=== PATIENT | male | born 1980 | race Caucasian/White ===

== ENCOUNTER 2018-03-24 20:14 | Emergency (ER) | payer SELFPAY ==
[2018-03-24] MEDS ORDERED: ACETAMINOPHEN 325 MG TABLET PO ONE (20:35)
--- NOTE | 2018-03-24 22:00 | ER Document Report ---
HPI - HPI Patient complains to provider of: fever Time Seen by Provider: 03/24/18 21:28 Pain Level: 5 Context: Patient is a 37-year-old male presents the emergency department complaining of generalized body aches, bilateral ear pain, sore throat, fever, cough, congestion for the last 3 days. Patient states his "lungs hurt" when he tries to take a deep breath. Patient does admit to one episode of non-posttussive vomiting this afternoon but states he has been able to drink fluids since. Patient denies any nausea or diarrhea. Patient states his son is a type I diabetic at home and he does not want to get him sick which is why he comes to the emergency room. Past medical history: None Medications: None Allergies: Penicillin Patient denies cigarette smoking, denies illicit drug use, denies EtOH use. - EENT EENT: REPORTS: Ear Pain - RESPIRATORY Respiratory: REPORTS: Coughing Past Medical History - General Information source: Patient - Social History Smoking Status: Never Smoker Family History: Reviewed & Not Pertinent Patient has suicidal ideation: No Patient has homicidal ideation: No Renal/ Medical History: Denies: Hx Peritoneal Dialysis Vertical Provider Document - CONSTITUTIONAL Agree With Documented VS: Yes Notes: GENERAL: Alert, interacts well. No acute distress. HEAD: Normocephalic, atraumatic. EYES: Pupils equal, round, and reactive to light. Extraocular movements intact. ENT: Oral mucosa moist, tongue midline. Nares patent, swollen turbinates bilaterally, TMs nonerythematous, nonbulging, pharynx within normal limits, no palatal petechiae or exudate noted NECK: Full range of motion. Supple. Trachea midline. No lymphadenopathy nalini reciated LUNGS: Clear to auscultation bilaterally , yet shallow respirations no wheezes, rales, or rhonchi. No respiratory distress. HEART: Regular rate and rhythm. No murmur ABDOMEN: Soft, non-tender. Non-distended. Bowel sounds present in all 4 quadrants. EXTREMITIES: Moves all 4 extremities spontaneously. No edema, normal radial and dorsalis pedis pulses bilaterally. No cyanosis. BACK: no cervical, thoracic, lumbar midline tenderness. No saddle anesthesia, normal distal neurovascular exam. NEUROLOGICAL: Alert and oriented x3. Normal speech. cranial nerves II through XII grossly intact PSYCH: Normal affect, normal mood. SKIN: Warm, dry, normal turgor. No rashes or lesions noted. - INFECTION CONTROL TRAVEL OUTSIDE OF THE [place] IN LAST 30 DAYS: No Course - Re-evaluation Re-evalutation: 03/24/18 22:53 Patient's chest x-ray shows no signs of pneumonia, pneumothorax, rib fractures. Discussed this at length with patient at bedside. Will prescribe antitussive medications and Nasonex for swollen turbinates. Patient is currently afebrile, non-tachycardic able to drink an entire bottle of Gatorade with no vomiting. Patient stable for discharge at this time. - Vital Signs Vital signs: Temp Pulse Resp BP Pulse Ox 102.7 F H 98 18 133/78 H 95 03/24/18 20:30 03/24/18 20:30 03/24/18 20:30 03/24/18 20:30 03/24/18 20:30 Discharge - Discharge Clinical Impression: Upper respiratory infection Qualifiers: URI type: unspecified viral URI Qualified Code(s): J06.9 - Acute upper respiratory infection, unspecified Condition: Stable Disposition: HOME, SELF-CARE Instructions: Viral Syndrome ([facility]), Upper Respiratory Illness ([facility]), Fever ([facility]) Additional Instructions: As we discussed you have been seen and treated in the emergency department for an upper respiratory infection. Your chest x-ray shows no signs of pneumonia. You should take medications as prescribed. Please follow-up with your primary care provider in the next 24-48 hours. Please return to the emergency room for any other concerning symptoms. Prescriptions: Benzonatate [Tessalon Perles 100 mg Capsule] 100 mg PO Q8HP PRN #40 capsule PRN Reason: Mometasone Furoate [Nasonex] 1 spray NS Q12 #1 spray.pump Pseudoephedrine HCl [Sudafed 12 Hour] 120 mg PO BID #16 tablet.er Referrals: SIMA STRANGE FNP [Primary Care Provider] - Follow up as needed
[2018-03-24] MEDS ORDERED: BENZONATATE 100 MG CAPSULE PO ONE (22:33)
--- NOTE | 2018-03-24 22:41 | RADIOLOGY REPORT (SQ) ---
XR CHEST 2 VIEWS HISTORY: Shortness of breath. COMPARISON: None. FINDINGS: The cardiomediastinal silhouette is unremarkable. The lungs are clear. No pleural effusion or pneumothorax is identified. IMPRESSION: No acute cardiopulmonary abnormality.
[2018-03-24 23:10] VITALS: BP 120/82
== END 2018-03-24 23:11 | disposition home or self-care (01) ==
LOC: ER 20:14
DX: J06.9 Acute upper respiratory infection, unspecified (principal); B97.89 Other viral agents as the cause of diseases classified elsewhere; H93.8X3 Other specified disorders of ear, bilateral; R50.9 Fever, unspecified; H92.03 Otalgia, bilateral; J02.9 Acute pharyngitis, unspecified; R05 Cough; R07.1 Chest pain on breathing; R11.10 Vomiting, unspecified
CPT/HCPCS: 71046; 99283